=== PATIENT | female | born 1990 | race Caucasian/White ===

== ENCOUNTER 2018-11-08 12:08 | Inpatient (IN) | payer OTHER ==
[~2018-11-08 12:08] MED LIST: OXYTOCIN 30 UNITS/LR 500 ML BAG IV
[2018-11-08 14:09] LABS: ADD UMIC YES; UR AMORPHOUS CRYSTAL FEW /HPF (NONE SEEN); UR ASCORBIC ACID NEGATIVE (NEGATIVE); UR BACTERIA FEW /HPF (NONE SEEN); UR BILIRUBIN (Dip) 1+ mg/dL (NEGATIVE); UR BLOOD (Dip) 2+ mg/dL (NEGATIVE); UR CLARITY CLOUDY (CLEAR); UR COLOR AMBER (YELLOW); UR GLUCOSE (Dip) NEGATIVE (NEGATIVE); UR KETONES (Dip) NEGATIVE (NEGATIVE); UR LEUKOCYTE ESTERASE (Dip) 2+ Leu/ul (NEGATIVE); UR MUCUS FEW /HPF (NONE SEEN); UR NITRITE (Dip) NEGATIVE (NEGATIVE); UR NONSQUAMOUS EPITHELIAL CELL 1 /HPF (NONE SEEN); UR RBC 2 /HPF (0-5); UR SPECIFIC GRAVITY (Dip) 1.013 (1.003-1.030); UR SQUAMOUS EPITHELIAL CELL MANY /HPF (FEW); UR TOTAL PROTEIN (Dip) 1+ mg/dl (NEGATIVE); UR UROBILINOGEN (Dip) NEGATIVE (NEGATIVE); UR WBC 56 /HPF (0-5)
[2018-11-08 14:13] LABS: WHITE BLOOD COUNT 14.3 10^3/ul (4.8-10.8)
[2018-11-08 14:13] LABS: ABNORMAL IP MESSAGE 1; HEMATOCRIT 35.4 % (37.0-47.0); HEMOGLOBIN 11.7 g/dl (12.0-16.0); MEAN CORPUSCULAR HEMOGLOBIN 27.9 pg (29.0-33.0); MEAN CORPUSCULAR HGB CONC 33.1 g/dl (32.0-37.0); MEAN CORPUSCULAR VOLUME 84.5 fl (82.0-101.0); MEAN PLATELET VOLUME 12.5 fl (7.4-10.4); NUCLEATED RED BLOOD CELLS% 9.6 /100WBC (0.0-0.0); PLATELET COUNT 192 10^3/UL (140-415); RED BLOOD COUNT 4.19 10^6/ul (4.20-5.40); RED CELL DISTRIBUTION WIDTH 14.1 % (11.5-14.5)
[2018-11-08 14:14] LABS: ADD MAN DIFF? YES; POSITIVE DIFF @See below
[2018-11-08 14:40] LABS: ALANINE AMINOTRANSFERASE 408 IU/L (13-69); ALKALINE PHOSPHATASE 484 IU/L (42-121); ANION GAP 15 (5-13); ASPARTATE AMINO TRANSFERASE 193 IU/L (15-46); BILIRUBIN,INDIRECT 1.4 mg/dl (0-1.1); BLOOD UREA NITROGEN 18 mg/dl (7-20); CALCIUM 9.5 mg/dl (8.4-10.2); CARBON DIOXIDE 20 mmol/L (21-31); CHLORIDE 96 mmol/L (97-110); CREATININE 2.48 mg/dl (0.44-1.00); Estimated GFR 23 mL/min (>60); GLUCOSE 74 mg/dl (70-220); POTASSIUM 3.6 mmol/L (3.5-5.1); SODIUM 131 mmol/L (135-144); TOTAL PROTEIN 6.3 g/dl (6.1-8.1)
[2018-11-08 15:56] LABS: BAND NEUTROPHILS #M 1.2 10^3/ul (0.0-0.6); BAND NEUTROPHILS % (M) 9 % (0-4); BURR CELLS 1+ (0-0); EOSINOPHILS % (M) 7 % (0-7); ERYTHROBLAST% (NRBC) (M) 24 % (0-0); LYMPHOCYTES #M 3.2 10^3/ul (0.8-2.9); LYMPHOCYTES % (M) 23 % (15-51); METAMYELOCYTES #M 0.1 10^3/ul (0.0-0.0); METAMYELOCYTES %M 1 % (0-0); MONOCYTE #M 0.7 10^3/ul (0.3-0.9); MONOCYTES % (M) 5 % (0-11); PLATELET ESTIMATE NORMAL; POIKILOCYTOSIS 3+ (0-0); POLYCHROMASIA 1+ (0-0); REACTIVE LYMPHOCYTES #M 0.4 10^3/ul (0.0-0.0); REACTIVE LYMPHOCYTES% (M) 3 % (0-0); SEG NEUT #M 7.6 10^3/ul (1.6-7.5); SEGMENTED NEUTROPHILS (M) % 52 % (39-77); SMUDGE%M 11 % (0-0)
[2018-11-08] MEDS: LACTATED RINGER'S 1,000 ML IV ×3 (16:06→23:57)
[2018-11-08] MEDS ORDERED: OXYTOCIN 30 UNITS/LR 500 ML IV (18:00)
[2018-11-08] MEDS ORDERED: METHYLERGONOVINE 0.2 MG INJ IM (18:00)
[2018-11-08] MEDS ORDERED: MISOPROSTOL 200 MCG TAB PR (18:00)
[2018-11-08] MEDS: AMPICILLIN 2 GM/NS (PMX) 100 ML IV (18:10)
[2018-11-08 18:12] LABS: PARTIAL THROMBOPLASTIN TIME 43.1 Sec (23.0-35.0)
[2018-11-08 18:20] LABS: PROTIME 20.1 Sec (11.9-14.9); PT RATIO 1.6
[2018-11-08 18:55] LABS: HEPATITIS B SURFACE ANTIGEN NEGATIVE (NEGATIVE)
[2018-11-08] MEDS: SOD CHLORIDE 0.9% 1,000 ML IV (20:55)
[2018-11-08] MEDS: ONDANSETRON 4 MG INJ IV (22:36)
[2018-11-08] MEDS: CITRIC ACID/NA CITRATE 30 ML CUP PO (22:37)
[2018-11-08] MEDS ORDERED: morphine SULFATE/PF (10 MG/10 ML) INJ (22:48)
[2018-11-08] MEDS ORDERED: OXYTOCIN 10 UNIT INJ (22:48)
[2018-11-08] MEDS ORDERED: PHENYLephrine (100 MCG/ML) 10ML SYG ×2 (22:48→23:32)
[2018-11-08 23:14] LABS: INR 1.52; PROTIME 18.4 Sec (11.9-14.9); PT RATIO 1.4
[2018-11-08 23:15] LABS: PARTIAL THROMBOPLASTIN TIME 38.8 Sec (23.0-35.0)
[2018-11-08] MEDS ORDERED: HYDROmorphONE 0.5 MG/0.5 ML SYG IV ×2 (23:30)
[2018-11-08] MEDS ORDERED: morphine 2 MG INJ IV ×2 (23:30)
[2018-11-08] MEDS ORDERED: ONDANSETRON 4 MG INJ IV ×2 (23:30)
[2018-11-08] MEDS ORDERED: MEPERIDINE 25 MG INJ IV (23:30)
[2018-11-08] MEDS ORDERED: NALOXONE (0.4 MG/ML) INJ IV (23:30)
[2018-11-08] MEDS ORDERED: FENTAnyl 50 MCG/ML VIAL IV ×2 (23:30)
[2018-11-08] MEDS ORDERED: METOCLOPRAMIDE 10 MG INJ IV (23:30)
[2018-11-08] MEDS ORDERED: DIPHENHYDRAMINE 50 MG INJ IV (23:30)
[2018-11-08] MEDS ORDERED: HYDROCODONE/APAP (5/325) TAB PO (23:30)
[2018-11-08] MEDS ORDERED: morphine (1 MG/ML) 10ML SYRINGE IV ×2 (23:30)
[2018-11-08] MEDS ORDERED: NALBUPHINE HCL (10 MG/1 ML) INJ IV (23:30)
[2018-11-08] MEDS ORDERED: ALBUMIN HUMAN 5% 250 ML IV (23:30)
[2018-11-08] MEDS ORDERED: OXYCODONE/ACETAMINOPHEN (5/325) TAB PO (23:30)
[2018-11-08] MEDS ORDERED: EPHEDrine SULFATE 50 MG/5 ML SYG IV (23:30)
[2018-11-08] MEDS ORDERED: LABETALOL HCL 20MG INJ IV (23:30)
[2018-11-08] MEDS ORDERED: METOCLOPRAMIDE 10 MG INJ (23:32)
[2018-11-08] MEDS ORDERED: ALBUMIN HUMAN 5% 250 ML ×2 (23:32→23:42)
[2018-11-08] MEDS ORDERED: DEXAMETHASONE 4 MG/ML 1 ML INJ (23:32)
[2018-11-08] MEDS ORDERED: EPHEDrine 25 MG/5 ML SYG (23:32)
[2018-11-08] MEDS ORDERED: HETASTARCH 6% NACL 500 ML (23:32)
[2018-11-09 00:48] LABS: IMMEDIATE SPIN CROSSMATCH 1 2
[2018-11-09] MEDS: CEFAZOLIN 2 GM/50 ML (PMX) 50 ML IVPB (01:14)
[2018-11-09] MEDS: LACTATED RINGER'S 1,000 ML IV ×3 (01:15→03:33)
[2018-11-09] MEDS: SOD CHLORIDE 0.9% 1,000 ML IV ×4 (01:17→15:10)
[2018-11-09] MEDS: OXYTOCIN 30 UNITS/LR 500 ML IV ×5 (02:12→14:00)
[2018-11-09 02:16] LABS: WHITE BLOOD COUNT 11.8 10^3/ul (4.8-10.8)
[2018-11-09 02:16] LABS: ABNORMAL IP MESSAGE 1; HEMATOCRIT 19.3 % (37.0-47.0); MEAN CORPUSCULAR HEMOGLOBIN 28.8 pg (29.0-33.0); MEAN CORPUSCULAR HGB CONC 33.2 g/dl (32.0-37.0); MEAN CORPUSCULAR VOLUME 86.9 fl (82.0-101.0); MEAN PLATELET VOLUME 11.9 fl (7.4-10.4); NUCLEATED RED BLOOD CELLS% 7.4 /100WBC (0.0-0.0); PLATELET COUNT 99 10^3/UL (140-415); RED BLOOD COUNT 2.22 10^6/ul (4.20-5.40); RED CELL DISTRIBUTION WIDTH 14.4 % (11.5-14.5)
[2018-11-09 02:23] LABS: POSITIVE DIFF @See below
[2018-11-09 02:24] LABS: ADD MAN DIFF? YES
[2018-11-09 02:28] LABS: HEMOGLOBIN 6.4 g/dl (12.0-16.0)
[2018-11-09] MEDS: MISOPROSTOL 200 MCG TAB SL (02:50)
[2018-11-09 03:12] LABS: IMMEDIATE SPIN CROSSMATCH 1
[2018-11-09] MEDS: CARBOPROST 250 MCG INJ IM (03:18)
[2018-11-09] MEDS ORDERED: MISOPROSTOL 200 MCG TAB PR (03:30)
[2018-11-09] MEDS ORDERED: LANOLIN HPA 1 PKT TOP (03:30)
[2018-11-09] MEDS ORDERED: CARBOPROST 250 MCG INJ IM (03:30)
[2018-11-09] MEDS ORDERED: OXYTOCIN 30 UNITS/LR 500 ML IV (03:30)
[2018-11-09 04:20] LABS: ANISOCYTOSIS 1+ (0-0); BAND NEUTROPHILS #M 1.5 10^3/ul (0.0-0.6); BAND NEUTROPHILS % (M) 13 % (0-4); EOSINOPHILS % (M) 4 % (0-7); ERYTHROBLAST% (NRBC) (M) 8 % (0-0); GIANT THROMBO% (M) 2 % (0-0); LYMPHOCYTES #M 1.4 10^3/ul (0.8-2.9); LYMPHOCYTES % (M) 12 % (15-51); METAMYELOCYTES #M 0.1 10^3/ul (0.0-0.0); METAMYELOCYTES %M 1 % (0-0); MONOCYTE #M 0.2 10^3/ul (0.3-0.9); MONOCYTES % (M) 2 % (0-11); MYELOCYTES #M 0.3 10^3/ul (0.0-0.0); MYELOCYTES % (M) 3 % (0-0); PLATELET ESTIMATE NORMAL; POIKILOCYTOSIS 3+ (0-0); POLYCHROMASIA 3+ (0-0); PROMYELOCYTES #M 0.1 10^3/ul (0-0); PROMYELOCYTES % (M) 1 % (0-0); SEG NEUT #M 7.7 10^3/ul (1.6-7.5); SEGMENTED NEUTROPHILS (M) % 64 % (39-77); SMUDGE%M 20 % (0-0)
[2018-11-09] MEDS: DIPHENHYDRAMINE 50 MG INJ IV ×3 (04:49→08:00)
[2018-11-09] MEDS: ACETAMINOPHEN 1000MG/100ML IV 100 ML IVPB (04:58)
[2018-11-09] MEDS: PIPER-TAZO 3.375 GM IV (PMX) 100 ML IVPB ×3 (05:33→21:33)
[2018-11-09 05:34] LABS: ADD MAN DIFF? NO
[2018-11-09 05:52] LABS: ADD UMIC YES; UR ASCORBIC ACID NEGATIVE (NEGATIVE); UR BILIRUBIN (Dip) NEGATIVE (NEGATIVE); UR BLOOD (Dip) 2+ mg/dL (NEGATIVE); UR CLARITY SLIGHTLY CLOUDY (CLEAR); UR COLOR YELLOW (YELLOW); UR GLUCOSE (Dip) NEGATIVE (NEGATIVE); UR KETONES (Dip) TRACE mg/dL (NEGATIVE); UR LEUKOCYTE ESTERASE (Dip) NEGATIVE Leu/ul (NEGATIVE); UR MUCUS FEW /HPF (NONE SEEN); UR NITRITE (Dip) NEGATIVE (NEGATIVE); UR RBC 1 /HPF (0-5); UR SPECIFIC GRAVITY (Dip) 1.009 (1.003-1.030); UR TOTAL PROTEIN (Dip) NEGATIVE (NEGATIVE); UR UROBILINOGEN (Dip) NEGATIVE (NEGATIVE); UR WBC 2 /HPF (0-5)
[2018-11-09 05:59] LABS: HEMOGLOBIN 8.4 g/dl (12.0-16.0); MEAN CORPUSCULAR HEMOGLOBIN 28.7 pg (29.0-33.0); MEAN CORPUSCULAR VOLUME 85.3 fl (82.0-101.0); RED BLOOD COUNT 2.93 10^6/ul (4.20-5.40)
[2018-11-09 06:00] LABS: BASOPHILS % 0.7 % (0.0-2.0); EOSINOPHILS % 0.1 % (0.0-7.0); LYMPHOCYTES # 3.4 10^3/ul (0.8-2.9); LYMPHOCYTES % 19.1 % (15.0-51.0); MEAN CORPUSCULAR HGB CONC 33.6 g/dl (32.0-37.0); MEAN PLATELET VOLUME 12.3 fl (7.4-10.4); MONOCYTE # 1.1 10^3/ul (0.3-0.9); MONOCYTES % 6.2 % (0.0-11.0); NEUTROPHIL # 12.2 10^3/ul (1.6-7.5); NEUTROPHILS % 67.9 % (39.0-77.0); NUCLEATED RED BLOOD CELLS% 6.8 /100WBC (0.0-0.0); PLATELET COUNT 134 10^3/UL (140-415)
[2018-11-09 06:01] LABS: BASOPHIL # 0.1 10^3/ul (0.0-0.1); NUCLEATED RED BLOOD CELLS # 1.2 10^3/ul (0.0-0.0)
[2018-11-09 06:29] LABS: ALANINE AMINOTRANSFERASE 180 IU/L (13-69); ALBUMIN 2.7 g/dl (3.3-4.9); ALBUMIN/GLOBULIN RATIO 0.96; ALKALINE PHOSPHATASE 282 IU/L (42-121); ANION GAP 19 (5-13); ASPARTATE AMINO TRANSFERASE 96 IU/L (15-46); BILIRUBIN,INDIRECT 1.2 mg/dl (0-1.1); BILIRUBIN,TOTAL 6.2 mg/dl (0.2-1.3); BLOOD UREA NITROGEN 16 mg/dl (7-20); CALCIUM 9.1 mg/dl (8.4-10.2); CARBON DIOXIDE 16 mmol/L (21-31); CHLORIDE 102 mmol/L (97-110); CREATININE 2.36 mg/dl (0.44-1.00); Estimated GFR 25 mL/min (>60); GLUCOSE 62 mg/dl (70-220); POTASSIUM 4.2 mmol/L (3.5-5.1); SODIUM 137 mmol/L (135-144); TOTAL PROTEIN 5.5 g/dl (6.1-8.1); URIC ACID 9.9 mg/dl (3.1-7.9)
[2018-11-09 06:30] LABS: PLATELET COUNT 133 10^3/UL (140-415)
[2018-11-09] MEDS ORDERED: ACETAMINOPHEN 1000MG/100ML IV 100 ML IVPB (06:30)
[2018-11-09 06:51] LABS: INR 1.51; PARTIAL THROMBOPLASTIN TIME 33.5 Sec (23.0-35.0); PROTIME 18.3 Sec (11.9-14.9); PT RATIO 1.4
[2018-11-09] MEDS ORDERED: SOD CHLORIDE 0.9% 1,000 ML IV (07:00)
[2018-11-09 07:22] LABS: D-DIMER > 10000.00 ng/ml (<460)
[2018-11-09 07:31] LABS: FIBRIN SPLIT PRODUCT >40 and <80 ug/ml (<10)
[2018-11-09 07:57] LABS: THROMBIN TIME 19.8 SEC (13.8-19.1)
[2018-11-09] MEDS: LABETALOL HCL 20MG INJ IV (08:00)
[2018-11-09 08:37] LABS: POST-TRANSFUSION BILIRUBIN 6.8 mg/dl
[2018-11-09 08:37] LABS: PRETRANSFUSION BILIRUBIN 6.3 mg/dl
[2018-11-09] MEDS: SENNA/DOCUSATE NA (8.6MG/50MG) TAB PO ×2 (09:39→20:44)
[2018-11-09] MEDS: ACETAMINOPHEN 500 MG TAB PO (09:39)
[2018-11-09 10:13] LABS: ABNORMAL IP MESSAGE 1; HEMATOCRIT 24.4 % (37.0-47.0); HEMOGLOBIN 8.2 g/dl (12.0-16.0); MEAN CORPUSCULAR HEMOGLOBIN 28.7 pg (29.0-33.0); MEAN CORPUSCULAR HGB CONC 33.6 g/dl (32.0-37.0); MEAN CORPUSCULAR VOLUME 85.3 fl (82.0-101.0); MEAN PLATELET VOLUME 12.4 fl (7.4-10.4); NUCLEATED RED BLOOD CELLS% 9.1 /100WBC (0.0-0.0); PLATELET COUNT 112 10^3/UL (140-415); RED BLOOD COUNT 2.86 10^6/ul (4.20-5.40); RED CELL DISTRIBUTION WIDTH 14.3 % (11.5-14.5)
[2018-11-09 10:13] LABS: WHITE BLOOD COUNT 16.4 10^3/ul (4.8-10.8)
[2018-11-09 10:14] LABS: ADD MAN DIFF? YES; POSITIVE DIFF @See below
[2018-11-09 10:25] LABS: ALANINE AMINOTRANSFERASE 167 IU/L (13-69); ALBUMIN 2.6 g/dl (3.3-4.9); ALBUMIN/GLOBULIN RATIO 0.96; ALKALINE PHOSPHATASE 258 IU/L (42-121); ANION GAP 14 (5-13); ASPARTATE AMINO TRANSFERASE 103 IU/L (15-46); BILIRUBIN,INDIRECT 1.1 mg/dl (0-1.1); BILIRUBIN,TOTAL 6.6 mg/dl (0.2-1.3); BLOOD UREA NITROGEN 16 mg/dl (7-20); CALCIUM 8.6 mg/dl (8.4-10.2); CARBON DIOXIDE 20 mmol/L (21-31); CHLORIDE 102 mmol/L (97-110); CREATININE 2.54 mg/dl (0.44-1.00); Estimated GFR 23 mL/min (>60); GLUCOSE 81 mg/dl (70-220); INR 1.73; POTASSIUM 3.8 mmol/L (3.5-5.1); PROTIME 20.3 Sec (11.9-14.9); PT RATIO 1.6; SODIUM 136 mmol/L (135-144); TOTAL PROTEIN 5.3 g/dl (6.1-8.1); URIC ACID 10.4 mg/dl (3.1-7.9)
[2018-11-09 10:26] LABS: PARTIAL THROMBOPLASTIN TIME 33.7 Sec (23.0-35.0)
[2018-11-09 11:54] LABS: ANISOCYTOSIS 1+ (0-0); BAND NEUTROPHILS #M 0.8 10^3/ul (0.0-0.6); BAND NEUTROPHILS % (M) 5 % (0-4); BURR CELLS 2+ (0-0); ERYTHROBLAST% (NRBC) (M) 8 % (0-0); GIANT THROMBO% (M) 5 % (0-0); LYMPHOCYTES #M 2.4 10^3/ul (0.8-2.9); LYMPHOCYTES % (M) 15 % (15-51); METAMYELOCYTES #M 0.9 10^3/ul (0.0-0.0); METAMYELOCYTES %M 6 % (0-0); MYELOCYTES #M 0.3 10^3/ul (0.0-0.0); MYELOCYTES % (M) 2 % (0-0); PLATELET ESTIMATE DECREASED; POIKILOCYTOSIS 2+ (0-0); POLYCHROMASIA 1+ (0-0); SEG NEUT #M 11.9 10^3/ul (1.6-7.5); SEGMENTED NEUTROPHILS (M) % 72 % (39-77); SMUDGE%M 9 % (0-0)
[2018-11-09] MEDS ORDERED: ACETAMINOPHEN 500 MG TAB PO (17:30)
[2018-11-10] MEDS: SOD CHLORIDE 0.9% 1,000 ML IV ×2 (00:11→09:30)
[2018-11-10 05:22] LABS: ADD MAN DIFF? NO
[2018-11-10] MEDS: PIPER-TAZO 3.375 GM IV (PMX) 100 ML IVPB ×3 (05:24→23:47)
[2018-11-10 05:25] LABS: ABNORMAL IP MESSAGE 1; BASOPHILS % 0.2 % (0.0-2.0); HEMATOCRIT 19.2 % (37.0-47.0); LYMPHOCYTES # 3.1 10^3/ul (0.8-2.9); LYMPHOCYTES % 13.9 % (15.0-51.0); MEAN CORPUSCULAR HEMOGLOBIN 29.1 pg (29.0-33.0); MEAN CORPUSCULAR HGB CONC 34.4 g/dl (32.0-37.0); MEAN CORPUSCULAR VOLUME 84.6 fl (82.0-101.0); MEAN PLATELET VOLUME 11.9 fl (7.4-10.4); MONOCYTE # 2.2 10^3/ul (0.3-0.9); MONOCYTES % 9.9 % (0.0-11.0); NEUTROPHIL # 15.8 10^3/ul (1.6-7.5); NEUTROPHILS % 71.4 % (39.0-77.0); NUCLEATED RED BLOOD CELLS # 0.5 10^3/ul (0.0-0.0); NUCLEATED RED BLOOD CELLS% 2.3 /100WBC (0.0-0.0); PLATELET COUNT 101 10^3/UL (140-415); RED BLOOD COUNT 2.27 10^6/ul (4.20-5.40); RED CELL DISTRIBUTION WIDTH 14.5 % (11.5-14.5)
[2018-11-10 05:25] LABS: WHITE BLOOD COUNT 22.2 10^3/ul (4.8-10.8)
[2018-11-10 05:37] LABS: HEMOGLOBIN 6.6 g/dl (12.0-16.0); POSITIVE DIFF @See below
[2018-11-10 05:54] LABS: INR 2.16; PROTIME 24.2 Sec (11.9-14.9); PT RATIO 1.9
[2018-11-10 05:55] LABS: PARTIAL THROMBOPLASTIN TIME 39.8 Sec (23.0-35.0)
[2018-11-10 06:26] LABS: ALANINE AMINOTRANSFERASE 112 IU/L (13-69); ALBUMIN 1.9 g/dl (3.3-4.9); ALBUMIN/GLOBULIN RATIO 0.82; ALKALINE PHOSPHATASE 213 IU/L (42-121); ANION GAP 4 (5-13); ASPARTATE AMINO TRANSFERASE 98 IU/L (15-46); BILIRUBIN,INDIRECT 0.9 mg/dl (0-1.1); BILIRUBIN,TOTAL 5.3 mg/dl (0.2-1.3); BLOOD UREA NITROGEN 15 mg/dl (7-20); CALCIUM 7.8 mg/dl (8.4-10.2); CARBON DIOXIDE 24 mmol/L (21-31); CHLORIDE 110 mmol/L (97-110); CREATININE 2.19 mg/dl (0.44-1.00); Estimated GFR 27 mL/min (>60); GLUCOSE 95 mg/dl (70-220); POTASSIUM 3.6 mmol/L (3.5-5.1); SODIUM 138 mmol/L (135-144); TOTAL PROTEIN 4.2 g/dl (6.1-8.1)
[2018-11-10] MEDS: SENNA/DOCUSATE NA (8.6MG/50MG) TAB PO ×2 (08:47→23:47)
[2018-11-10] MEDS: OXYCODONE/ACETAMINOPHEN (5/325) TAB PO ×2 (09:36→23:47)
[2018-11-10 12:54] LABS: ADD UMIC YES; UR ASCORBIC ACID NEGATIVE (NEGATIVE); UR BACTERIA FEW /HPF (NONE SEEN); UR BILIRUBIN (Dip) NEGATIVE (NEGATIVE); UR BLOOD (Dip) 1+ mg/dL (NEGATIVE); UR CLARITY CLEAR (CLEAR); UR COLOR YELLOW (YELLOW); UR GLUCOSE (Dip) NEGATIVE (NEGATIVE); UR KETONES (Dip) NEGATIVE (NEGATIVE); UR LEUKOCYTE ESTERASE (Dip) NEGATIVE Leu/ul (NEGATIVE); UR MUCUS FEW /HPF (NONE SEEN); UR NITRITE (Dip) NEGATIVE (NEGATIVE); UR RBC 0 /HPF (0-5); UR SPECIFIC GRAVITY (Dip) 1.009 (1.003-1.030); UR TOTAL PROTEIN (Dip) NEGATIVE (NEGATIVE); UR UROBILINOGEN (Dip) NEGATIVE (NEGATIVE); UR WBC 1 /HPF (0-5)
[2018-11-10 15:09] LABS: RAPID PLASMA REAGIN NONREACTIVE (NR)
[2018-11-11 05:53] LABS: ABNORMAL IP MESSAGE 1; HEMATOCRIT 19.6 % (37.0-47.0); MEAN CORPUSCULAR HEMOGLOBIN 28.4 pg (29.0-33.0); MEAN CORPUSCULAR HGB CONC 33.2 g/dl (32.0-37.0); MEAN CORPUSCULAR VOLUME 85.6 fl (82.0-101.0); MEAN PLATELET VOLUME 12.3 fl (7.4-10.4); PLATELET COUNT 126 10^3/UL (140-415); RED BLOOD COUNT 2.29 10^6/ul (4.20-5.40); RED CELL DISTRIBUTION WIDTH 14.7 % (11.5-14.5)
[2018-11-11 05:53] LABS: WHITE BLOOD COUNT 22.5 10^3/ul (4.8-10.8)
[2018-11-11 06:06] LABS: INR 1.81; PARTIAL THROMBOPLASTIN TIME 38.7 Sec (23.0-35.0); PROTIME 21.1 Sec (11.9-14.9); PT RATIO 1.6
[2018-11-11] MEDS: PIPER-TAZO 3.375 GM IV (PMX) 100 ML IVPB (06:14)
[2018-11-11 06:20] LABS: ADD MAN DIFF? YES; HEMOGLOBIN 6.5 g/dl (12.0-16.0); POSITIVE DIFF @See below
[2018-11-11 06:23] LABS: ANION GAP 7 (5-13); BLOOD UREA NITROGEN 15 mg/dl (7-20); CALCIUM 7.6 mg/dl (8.4-10.2); CARBON DIOXIDE 27 mmol/L (21-31); CHLORIDE 105 mmol/L (97-110); CREATININE 1.45 mg/dl (0.44-1.00); Estimated GFR 44 mL/min (>60); GLUCOSE 85 mg/dl (70-220); MAGNESIUM 2.2 mg/dl (1.7-2.5); PHOSPHORUS 2.6 mg/dl (2.5-4.9); POTASSIUM 3.4 mmol/L (3.5-5.1); SODIUM 139 mmol/L (135-144)
[2018-11-11 09:09] LABS: ANISOCYTOSIS 1+ (0-0); BAND NEUTROPHILS #M 0.6 10^3/ul (0.0-0.6); BAND NEUTROPHILS % (M) 3 % (0-4); BURR CELLS 1+ (0-0); ERYTHROBLAST% (NRBC) (M) 3 % (0-0); HYPOCHROMASIA 1+ (0-0); LYMPHOCYTES #M 3.1 10^3/ul (0.8-2.9); LYMPHOCYTES % (M) 14 % (15-51); MONOCYTE #M 0.9 10^3/ul (0.3-0.9); MONOCYTES % (M) 4 % (0-11); PLATELET ESTIMATE DECREASED; POIKILOCYTOSIS 1+ (0-0); POLYCHROMASIA 3+ (0-0); SEG NEUT #M 17.9 10^3/ul (1.6-7.5); SEGMENTED NEUTROPHILS (M) % 79 % (39-77); SMUDGE%M 1 % (0-0); TARGET CELLS 1+ (0-0)
[2018-11-11] MEDS: SENNA/DOCUSATE NA (8.6MG/50MG) TAB PO ×2 (09:25→20:48)
[2018-11-11] MEDS: OXYCODONE/ACETAMINOPHEN (5/325) TAB PO (12:31)
[2018-11-11] MEDS: MULTIVITAMINS THERAPEUTIC TAB PO (18:07)
[2018-11-11] MEDS: FOLIC ACID 1 MG TAB PO (18:07)
[2018-11-11] MEDS: FERROUS SULFATE (EC) 325 MG TAB PO (20:48)
[2018-11-12] MEDS: OXYCODONE/ACETAMINOPHEN (5/325) TAB PO (01:09)
[2018-11-12 07:44] LABS: ADD MAN DIFF? NO
[2018-11-12 07:53] LABS: BASOPHILS % 0.2 % (0.0-2.0); EOSINOPHILS % 0.1 % (0.0-7.0); HEMATOCRIT 21.2 % (37.0-47.0); HEMOGLOBIN 7.1 g/dl (12.0-16.0); LYMPHOCYTES # 3.8 10^3/ul (0.8-2.9); LYMPHOCYTES % 22.3 % (15.0-51.0); MEAN CORPUSCULAR HEMOGLOBIN 28.5 pg (29.0-33.0); MEAN CORPUSCULAR HGB CONC 33.5 g/dl (32.0-37.0); MEAN CORPUSCULAR VOLUME 85.1 fl (82.0-101.0); MEAN PLATELET VOLUME 12.2 fl (7.4-10.4); MONOCYTE # 1.4 10^3/ul (0.3-0.9); MONOCYTES % 8.6 % (0.0-11.0); NEUTROPHIL # 11.3 10^3/ul (1.6-7.5); NUCLEATED RED BLOOD CELLS # 1.3 10^3/ul (0.0-0.0); NUCLEATED RED BLOOD CELLS% 7.4 /100WBC (0.0-0.0); PLATELET COUNT 131 10^3/UL (140-415); RED BLOOD COUNT 2.49 10^6/ul (4.20-5.40); RED CELL DISTRIBUTION WIDTH 14.9 % (11.5-14.5)
[2018-11-12 07:53] LABS: WHITE BLOOD COUNT 16.8 10^3/ul (4.8-10.8)
[2018-11-12 08:14] LABS: ALANINE AMINOTRANSFERASE 79 IU/L (13-69); ALBUMIN 1.9 g/dl (3.3-4.9); ALBUMIN/GLOBULIN RATIO 0.79; ALKALINE PHOSPHATASE 211 IU/L (42-121); ANION GAP 7 (5-13); ASPARTATE AMINO TRANSFERASE 65 IU/L (15-46); BILIRUBIN,INDIRECT 0.8 mg/dl (0-1.1); BILIRUBIN,TOTAL 3.6 mg/dl (0.2-1.3); BLOOD UREA NITROGEN 15 mg/dl (7-20); CALCIUM 7.6 mg/dl (8.4-10.2); CARBON DIOXIDE 26 mmol/L (21-31); CHLORIDE 104 mmol/L (97-110); CREATININE 1.07 mg/dl (0.44-1.00); Estimated GFR > 60 mL/min (>60); GLUCOSE 57 mg/dl (70-220); POTASSIUM 3.3 mmol/L (3.5-5.1); SODIUM 137 mmol/L (135-144); TOTAL PROTEIN 4.3 g/dl (6.1-8.1); URIC ACID 5.2 mg/dl (3.1-7.9)
[2018-11-12] MEDS: FOLIC ACID 1 MG TAB PO (08:48)
[2018-11-12] MEDS: FERROUS SULFATE (EC) 325 MG TAB PO ×3 (08:48→21:03)
[2018-11-12] MEDS: MULTIVITAMINS THERAPEUTIC TAB PO (08:48)
[2018-11-12] MEDS: SENNA/DOCUSATE NA (8.6MG/50MG) TAB PO ×2 (08:48→21:03)
[2018-11-13 08:42] LABS: ADD MAN DIFF? NO
[2018-11-13 08:46] LABS: WHITE BLOOD COUNT 13.3 10^3/ul (4.8-10.8)
[2018-11-13 08:46] LABS: BASOPHIL # 0.1 10^3/ul (0.0-0.1); BASOPHILS % 0.5 % (0.0-2.0); EOSINOPHILS # 0.3 10^3/ul (0.0-0.5); EOSINOPHILS % 2.2 % (0.0-7.0); LYMPHOCYTES # 4.8 10^3/ul (0.8-2.9); LYMPHOCYTES % 36.1 % (15.0-51.0); MEAN CORPUSCULAR HGB CONC 33.3 g/dl (32.0-37.0); MEAN PLATELET VOLUME 11.5 fl (7.4-10.4); MONOCYTE # 0.8 10^3/ul (0.3-0.9); MONOCYTES % 5.8 % (0.0-11.0); NEUTROPHIL # 7.2 10^3/ul (1.6-7.5); NUCLEATED RED BLOOD CELLS # 0.5 10^3/ul (0.0-0.0); NUCLEATED RED BLOOD CELLS% 4.1 /100WBC (0.0-0.0); PLATELET COUNT 143 10^3/UL (140-415); RED BLOOD COUNT 2.76 10^6/ul (4.20-5.40); RED CELL DISTRIBUTION WIDTH 15.2 % (11.5-14.5)
[2018-11-13] MEDS: SENNA/DOCUSATE NA (8.6MG/50MG) TAB PO ×2 (08:51→20:46)
[2018-11-13] MEDS: MULTIVITAMINS THERAPEUTIC TAB PO (08:51)
[2018-11-13] MEDS: FOLIC ACID 1 MG TAB PO (08:51)
[2018-11-13] MEDS: FERROUS SULFATE (EC) 325 MG TAB PO ×3 (08:55→20:45)
[2018-11-13 09:06] LABS: INR 1.32; PARTIAL THROMBOPLASTIN TIME 35.9 Sec (23.0-35.0); PROTIME 16.5 Sec (11.9-14.9); PT RATIO 1.3
[2018-11-13 09:18] LABS: ALANINE AMINOTRANSFERASE 86 IU/L (13-69); ALBUMIN/GLOBULIN RATIO 0.76; ALKALINE PHOSPHATASE 235 IU/L (42-121); ANION GAP 8 (5-13); ASPARTATE AMINO TRANSFERASE 100 IU/L (15-46); BILIRUBIN,INDIRECT 0.7 mg/dl (0-1.1); BILIRUBIN,TOTAL 2.5 mg/dl (0.2-1.3); BLOOD UREA NITROGEN 13 mg/dl (7-20); CALCIUM 7.6 mg/dl (8.4-10.2); CARBON DIOXIDE 26 mmol/L (21-31); CHLORIDE 103 mmol/L (97-110); CREATININE 0.92 mg/dl (0.44-1.00); Estimated GFR > 60 mL/min (>60); GLUCOSE 106 mg/dl (70-220); POTASSIUM 3.5 mmol/L (3.5-5.1); SODIUM 137 mmol/L (135-144); TOTAL PROTEIN 4.6 g/dl (6.1-8.1); URIC ACID 4.2 mg/dl (3.1-7.9)
[2018-11-14] MEDS: OXYCODONE/ACETAMINOPHEN (5/325) TAB PO (00:13)
[2018-11-14 06:48] LABS: WHITE BLOOD COUNT 14.2 10^3/ul (4.8-10.8)
[2018-11-14 06:48] LABS: ABNORMAL IP MESSAGE 1; HEMATOCRIT 23.1 % (37.0-47.0); HEMOGLOBIN 7.8 g/dl (12.0-16.0); MEAN CORPUSCULAR HEMOGLOBIN 29.4 pg (29.0-33.0); MEAN CORPUSCULAR HGB CONC 33.8 g/dl (32.0-37.0); MEAN CORPUSCULAR VOLUME 87.2 fl (82.0-101.0); MEAN PLATELET VOLUME 11.7 fl (7.4-10.4); NUCLEATED RED BLOOD CELLS% 2.7 /100WBC (0.0-0.0); PLATELET COUNT 136 10^3/UL (140-415); RED BLOOD COUNT 2.65 10^6/ul (4.20-5.40); RED CELL DISTRIBUTION WIDTH 15.4 % (11.5-14.5)
[2018-11-14 06:49] LABS: ADD MAN DIFF? YES; POSITIVE DIFF @See below
[2018-11-14 07:05] LABS: INR 1.22; PROTIME 15.5 Sec (11.9-14.9); PT RATIO 1.2
[2018-11-14 07:06] LABS: PARTIAL THROMBOPLASTIN TIME 34.9 Sec (23.0-35.0)
[2018-11-14 07:22] LABS: ALANINE AMINOTRANSFERASE 76 IU/L (13-69); ALBUMIN/GLOBULIN RATIO 0.76; ALKALINE PHOSPHATASE 240 IU/L (42-121); ANION GAP 6 (5-13); ASPARTATE AMINO TRANSFERASE 67 IU/L (15-46); BILIRUBIN,INDIRECT 0.5 mg/dl (0-1.1); BILIRUBIN,TOTAL 1.2 mg/dl (0.2-1.3); BLOOD UREA NITROGEN 12 mg/dl (7-20); CALCIUM 7.7 mg/dl (8.4-10.2); CARBON DIOXIDE 28 mmol/L (21-31); CHLORIDE 103 mmol/L (97-110); CREATININE 0.98 mg/dl (0.44-1.00); Estimated GFR > 60 mL/min (>60); GLUCOSE 69 mg/dl (70-220); POTASSIUM 3.9 mmol/L (3.5-5.1); SODIUM 137 mmol/L (135-144); TOTAL PROTEIN 4.6 g/dl (6.1-8.1); URIC ACID 4.1 mg/dl (3.1-7.9)
[2018-11-14] MEDS: SENNA/DOCUSATE NA (8.6MG/50MG) TAB PO ×2 (09:00→13:18)
[2018-11-14] MEDS: MULTIVITAMINS THERAPEUTIC TAB PO ×2 (09:00→13:18)
[2018-11-14] MEDS: FOLIC ACID 1 MG TAB PO ×2 (09:00→13:18)
[2018-11-14] MEDS: FERROUS SULFATE (EC) 325 MG TAB PO ×2 (09:00→13:16)
[2018-11-14 09:11] LABS: ANISOCYTOSIS 1+ (0-0); BAND NEUTROPHILS #M 0.2 10^3/ul (0.0-0.6); BAND NEUTROPHILS % (M) 2 % (0-4); EOSINOPHILS % (M) 3 % (0-7); GIANT THROMBO% (M) 3 % (0-0); HYPOCHROMASIA 1+ (0-0); LYMPHOCYTES #M 4.1 10^3/ul (0.8-2.9); LYMPHOCYTES % (M) 29 % (15-51); MONOCYTE #M 0.7 10^3/ul (0.3-0.9); MONOCYTES % (M) 5 % (0-11); PLATELET ESTIMATE DECREASED; POIKILOCYTOSIS 1+ (0-0); POLYCHROMASIA 1+ (0-0); SEG NEUT #M 8.7 10^3/ul (1.6-7.5); SEGMENTED NEUTROPHILS (M) % 61 % (39-77); SMUDGE%M 20 % (0-0); TARGET CELLS 1+ (0-0)
[2018-11-14 12:17] LABS: ADD MAN DIFF? NO
[2018-11-14 12:21] LABS: WHITE BLOOD COUNT 14.6 10^3/ul (4.8-10.8)
[2018-11-14 12:21] LABS: BASOPHIL # 0.1 10^3/ul (0.0-0.1); BASOPHILS % 0.3 % (0.0-2.0); EOSINOPHILS # 0.3 10^3/ul (0.0-0.5); EOSINOPHILS % 1.9 % (0.0-7.0); HEMATOCRIT 26.4 % (37.0-47.0); HEMOGLOBIN 8.7 g/dl (12.0-16.0); LYMPHOCYTES # 4.4 10^3/ul (0.8-2.9); LYMPHOCYTES % 30.3 % (15.0-51.0); MEAN CORPUSCULAR HEMOGLOBIN 29.6 pg (29.0-33.0); MEAN CORPUSCULAR VOLUME 89.8 fl (82.0-101.0); MEAN PLATELET VOLUME 11.1 fl (7.4-10.4); MONOCYTE # 0.7 10^3/ul (0.3-0.9); MONOCYTES % 4.7 % (0.0-11.0); NEUTROPHIL # 8.9 10^3/ul (1.6-7.5); NEUTROPHILS % 61.2 % (39.0-77.0); NUCLEATED RED BLOOD CELLS # 0.3 10^3/ul (0.0-0.0); NUCLEATED RED BLOOD CELLS% 2.1 /100WBC (0.0-0.0); PLATELET COUNT 154 10^3/UL (140-415); RED BLOOD COUNT 2.94 10^6/ul (4.20-5.40)
[2018-11-14 12:41] LABS: ALANINE AMINOTRANSFERASE 86 IU/L (13-69); ALBUMIN 2.4 g/dl (3.3-4.9); ALKALINE PHOSPHATASE 290 IU/L (42-121); ANION GAP 11 (5-13); ASPARTATE AMINO TRANSFERASE 72 IU/L (15-46); BILIRUBIN,INDIRECT 0.6 mg/dl (0-1.1); BILIRUBIN,TOTAL 1.4 mg/dl (0.2-1.3); BLOOD UREA NITROGEN 12 mg/dl (7-20); CALCIUM 7.9 mg/dl (8.4-10.2); CARBON DIOXIDE 27 mmol/L (21-31); CHLORIDE 101 mmol/L (97-110); CREATININE 0.97 mg/dl (0.44-1.00); Estimated GFR > 60 mL/min (>60); GLUCOSE 135 mg/dl (70-220); POTASSIUM 3.6 mmol/L (3.5-5.1); SODIUM 139 mmol/L (135-144); TOTAL PROTEIN 5.4 g/dl (6.1-8.1)
[2018-11-14] MEDS: DIPHTH/TET/ACEL PERTUSS (ADULT) 0.5 ML VIAL IM* (17:22)
== END 2018-11-14 18:10 | disposition home or self-care (01) | DRG 788 ==
LOC: OBT 12:08 → L-D 11-09 00:03 → BAR 12:08 → PP1 11-10 20:50 → L-D 12:34 → ICU 11-09 07:40 → L-D 13:27 → OBT 13:32 → L-D 13:20
PROC: 10D00Z1 Extraction of Products of Conception, Low, Open Approach (ICD-10-PCS; principal; 2018-11-08 20:00)
DX: O60.14X0 Preterm labor third trimester with preterm delivery third trimester, not applicable or unspecified (principal); O24.429 Gestational diabetes mellitus in childbirth, unspecified control; O14.14 Severe pre-eclampsia complicating childbirth; Z3A.34 34 weeks gestation of pregnancy; Z37.0 Single live birth
CPT/HCPCS: 36430; 71045; 76815; 76818; 80048; 80053; 81001; 82962; 83735; 84100; 84560; 85025; 85049; 85362; 85378; 85384; 85610; 85670; 85730; 86078; 86592; 86850; 86900; 86901; 86920; 87040; 87081; 87086; 87340; 88307; 93005; 93970; 99464

== ENCOUNTER 2019-01-03 15:19 | Emergency (ER) | payer OTHER ==
[2019-01-03 16:40] LABS: ADD MAN DIFF? NO
[2019-01-03 16:42] LABS: BASOPHILS % 0.6 % (0.0-2.0); EOSINOPHILS # 0.1 10^3/ul (0.0-0.5); HEMATOCRIT 35.9 % (37.0-47.0); HEMOGLOBIN 11.7 g/dl (12.0-16.0); LYMPHOCYTES # 3.1 10^3/ul (0.8-2.9); LYMPHOCYTES % 46.3 % (15.0-51.0); MEAN CORPUSCULAR HEMOGLOBIN 29.2 pg (29.0-33.0); MEAN CORPUSCULAR HGB CONC 32.6 g/dl (32.0-37.0); MEAN CORPUSCULAR VOLUME 89.5 fl (82.0-101.0); MEAN PLATELET VOLUME 10.5 fl (7.4-10.4); MONOCYTE # 0.6 10^3/ul (0.3-0.9); MONOCYTES % 8.6 % (0.0-11.0); NEUTROPHIL # 2.8 10^3/ul (1.6-7.5); NEUTROPHILS % 42.3 % (39.0-77.0); PLATELET COUNT 207 10^3/UL (140-415); RED BLOOD COUNT 4.01 10^6/ul (4.20-5.40); RED CELL DISTRIBUTION WIDTH 16.6 % (11.5-14.5)
[2019-01-03 16:42] LABS: WHITE BLOOD COUNT 6.6 10^3/ul (4.8-10.8)
[2019-01-03 16:59] LABS: ALANINE AMINOTRANSFERASE 80 IU/L (13-69); ALBUMIN 4.6 g/dl (3.3-4.9); ALBUMIN/GLOBULIN RATIO 1.31; ALKALINE PHOSPHATASE 112 IU/L (42-121); ANION GAP 11 (5-13); ASPARTATE AMINO TRANSFERASE 41 IU/L (15-46); BILIRUBIN,INDIRECT 0.2 mg/dl (0-1.1); BILIRUBIN,TOTAL 0.2 mg/dl (0.2-1.3); BLOOD UREA NITROGEN 12 mg/dl (7-20); CALCIUM 9.8 mg/dl (8.4-10.2); CARBON DIOXIDE 28 mmol/L (21-31); CHLORIDE 102 mmol/L (97-110); CREATININE 0.64 mg/dl (0.44-1.00); Estimated GFR > 60 mL/min (>60); GLUCOSE 104 mg/dl (70-220); POTASSIUM 3.8 mmol/L (3.5-5.1); SODIUM 141 mmol/L (135-144); TOTAL PROTEIN 8.1 g/dl (6.1-8.1)
[2019-01-03 17:01] LABS: ADD UMIC YES; UR ASCORBIC ACID 40 mg/dL (NEGATIVE); UR BILIRUBIN (Dip) NEGATIVE (NEGATIVE); UR BLOOD (Dip) NEGATIVE (NEGATIVE); UR CLARITY SLIGHTLY CLOUDY (CLEAR); UR COLOR YELLOW (YELLOW); UR GLUCOSE (Dip) NEGATIVE (NEGATIVE); UR KETONES (Dip) NEGATIVE (NEGATIVE); UR LEUKOCYTE ESTERASE (Dip) TRACE Leu/ul (NEGATIVE); UR MUCUS FEW /HPF (NONE SEEN); UR NITRITE (Dip) NEGATIVE (NEGATIVE); UR RBC 0 /HPF (0-5); UR SPECIFIC GRAVITY (Dip) 1.019 (1.003-1.030); UR SQUAMOUS EPITHELIAL CELL FEW /HPF (FEW); UR TOTAL PROTEIN (Dip) NEGATIVE (NEGATIVE); UR UROBILINOGEN (Dip) NEGATIVE (NEGATIVE); UR WBC 3 /HPF (0-5)
[2019-01-03 17:02] LABS: INR 0.95; PARTIAL THROMBOPLASTIN TIME 30.7 Sec (23.0-35.0); PROTIME 12.8 Sec (11.9-14.9)
[2019-01-03 17:13] LABS: PLATELET COUNT 207 10^3/UL (140-415)
[2019-01-03 18:05] LABS: THROMBIN TIME 15.9 SEC (13.8-19.1)
== END 2019-01-03 17:56 | disposition home or self-care (01) ==
LOC: FTE 15:19
DX: Z00.00 Encounter for general adult medical examination without abnormal findings (principal)
CPT/HCPCS: 36415; 80053; 81001; 85025; 85049; 85610; 85670; 85730; 99283